=== PATIENT | male | born 1955 | race Caucasian/White ===

== ENCOUNTER 2020-11-21 09:57 | Outpatient (REF) | payer SELFPAY ==
[2020-11-24 00:07] LABS: TS Negative Control Passed; TS Panel A 0; TS Panel B 1; TS Positive Control Passed; TSpotTB Negative (SeeBelow)
== END 2020-11-21 09:58 | disposition home or self-care (01) ==
LOC: HO.HMGCLDS 09:57
PROVIDERS: Visit Provider Hospitalist
DX: Z11.1 Encounter for screening for respiratory tuberculosis (principal)
CPT/HCPCS: 36415; 86481

== ENCOUNTER 2025-06-04 08:03 | Day surgery (SDC) | payer OTHER, SELFPAY ==
--- OUTSIDE RECORDS SUMMARY | 2025-04-08 16:15 | XMS_ITS | Patient Health Record ---
Author Organization [facility] Address [address] [place] [address] Care Team Providers Care Doughnut Glazier Name Role Phone Bk Rivers MD Primary Care Provider Unavailab Herberth Aguila Unavailable [phone] Allergies No Known Allergies Reason For Referral Referring Provider First Name Bk Referring Provider Last Name Silvestre Referring Provider Speciality Internal M edicine Referred Organization [facility] Referred Provider Herberth Mcknight Referred Address [address],[place], [place],[address], Referred Provider Specialty Gastroentero logy Referral Priority Routine Medications Medication SIG (Take, Route, Frequency, Duration) Notes Start Date End Date Status Lisinopril 40 MG 1 tablet Orally Once a day Active Dulcolax (colon prep) 5 MG take 2 at 3:0 0 p.m and 7:00p.m. the day before the colonoscopy Orally two tablets twice a day for one day for 1 days 03/04/2025 Active MiraLax (colon prep) 17 GM/SCOOP 1 238 Gm bottle mixed with Gatorade or Crystal Light the day before the colonoscopy orally begin at 5:00 p.m. the day before the procedure for 1 days 03/04/2025 Active Ibuprofen 600 MG 1 tablet with food o r milk as needed Orally Three times a day PRN Active Pravastatin Sodium 40 MG 1 tablet Orally Once a day Active amLODIPine Besylate 2.5 MG 1 tablet Orally Once a day Active metFORMIN HCl ER 500 MG 1 tablet with ev ening meal Orally Once a day Active Immunizations Vaccine Route Administration Date Status Comme nts Influenza Unknown 04/05/2019 Administered Influenza Unknown 04/22/2024 Administered Social History Tobacco Use: Social History Observation Description Date Details (start date - stop date) Current Smoker NA - NA Tobacco Use/Smoking Question Answer Notes Patient is a current smoker How often do you smoke cigarettes? every day How many cigarettes a day do you smoke? - Alcohol Screen Question Answer Notes Did you have a drink containing alcohol in the p ast year? No Points 0 Interpretation Negative Section Notes: Smokes 1 ppd; no sig alcohol Smokes 1 ppd; no sig alcohol Problems Problem Type SNOMED Code ICD Code Onset Dates Problem Status W/U Status Risk Notes Problem Colon cancer screening (019480368) Colon cancer screening (Z12.11) Active confirmed Problem 936767645 Encounter for screening for malignant neoplasm of colon (Z12.11) Active confirmed Problem [id number] Preprocedural examination (Z01.818) Active confirmed Problem 92211681069637 History of hepatitis C (Z86.19) Active confirmed Problem [id number] Hepatitis C virus infection without hepatic coma, unspecified chronicity (B19.20) Active confirmed Problem History of adenomatous polyp of colon (216412481) History of adenomatous polyp of colon (Z86.0101) Active confirmed Vital Signs Temperature 97.1 degrees Fahrenheit 02/23/2025 Blood pressure diastolic 01 mm Hg 02/23/2025 Height 69 in 02/23/2025 Blood pressure systolic 001 mm Hg 02/23/2025 Weight 187.6 lbs 02/23/2025 BMI 27.7 kg/m2 02/23/2025 Procedures Procedure Date Ordered Date Performed Result Body Sit e COLONOSCOPY 02/23/2025 N/A Encounters Encounter Location Date Provider Diagnosis [facility] [address] [place] [id number] 02/23/2025 Herberth Mcknight Colon cancer screeni ng Z12.11 ; Preprocedural examination Z01.818 ; History of adenomatous polyp of colon Z86.0101 and History of hepatitis C Z86.19 [facility] [address] [place] [phone] 02/23/2025 Herberth Mcknight Assessments Encounter Date Diagnosis (ICD Code) Assessment Notes Treatment Notes Treatment Clinical Notes Section Notes 02/23/2025 Colon cancer screening (ICD-10 - Z12.11) Overall, Mony appears well and is not having any new or worrisome GI complaints. I did recommend a follow-up colonoscopy for further screening given his history of polyps removed just about 5 years ago, including that of adenomatous and serrated polyp. We did review the rationale for this in regard to colon cancer prevention. Full consent has been obtained for this, including risks of bleeding and perforation. The procedure will be done with monitored anesthesia care. He was given the below instructions regarding adjustment of his medication for the procedure. I did advise him to be sure to continue to have yearly ultrasounds and laboratories, including an alpha-fetoprote in level, through your office at the [place]. Mony was comfortable with this plan. Thank you again for allowing me to precipitate in Mony's care. I shall continue to keep you advised of his progress. 02/23/2025 Preprocedural examination (ICD-10 - Z01.818) Overall, Mony appears well and is not having any new or worrisome GI complaints. I did recommend a follow-up colonoscopy for further screening given his history of polyps removed just about 5 years ago, including that of adenomatous and serrated polyp. We did review the rationale for this in regard to colon cancer prevention. Full consent has been obtained for this, including risks of bleeding and perforation. The procedure will be done with monitored anesthesia care. He was given the below instructions regarding adjustment of his medication for the procedure. I did advise him to be sure to continue to have yearly ultrasounds and laboratories, including an alpha-fetoprote in level, through your office at the [place]. Mony was comfortable with this plan. Thank you again for allowing me to precipitate in Mony's care. I shall continue to keep you advised of his progress. 02/23/2025 History of adenomatous polyp of colon (ICD-10 - Z86.0101) Overall, Mony appears well and is not having any new or worrisome GI complaints. I did recommend a follow-up colonoscopy for further screening given his history of polyps removed just about 5 years ago, including that of adenomatous and serrated polyp. We did review the rationale for this in regard to colon cancer prevention. Full consent has been obtained for this, including risks of bleeding and perforation. The procedure will be done with monitored anesthesia care. He was given the below instructions regarding adjustment of his medication for the procedure. I did advise him to be sure to continue to have yearly ultrasounds and laboratories, including an alpha-fetoprote in level, through your office at the [place]. Mony was comfortable with this plan. Thank you again for allowing me to precipitate in Mony's care. I shall continue to keep you advised of his progress. 02/23/2025 History of hepatitis C (ICD-10 - Z86.19) Continue the yearly ultrasounds and lab work for your liver and previous history of Hepatitis C Overall, Mony appears well and is not having any new or worrisome GI complaints. I did recommend a follow-up colonoscopy for further screening given his history of polyps removed just about 5 years ago, including that of adenomatous and serrated polyp. We did review the rationale for this in regard to colon cancer prevention. Full consent has been obtained for this, including risks of bleeding and perforation. The procedure will be done with monitored anesthesia care. He was given the below instructions regarding adjustment of his medication for the procedure. I did advise him to be sure to continue to have yearly ultrasounds and laboratories, including an alpha-fetoprote in level, through your office at the [place]. Mony was comfortable with this plan. Thank you again for allowing me to precipitate in Mony's care. I shall continue to keep you advised of his progress. Plan Of Treatment Pending Test Test Name Order Date COLONOSCOPY 02/23/2025 Future Test Test Name Order Date COLONOSCOPY 01/14/2020 Next Appt Details Provider Name:Herberth Mcknight , 06/04/2025 09:20:00 AM, [address] [place] [address] , [place], [place], [phone], Insurance Providers Payer Name Payer Address Payer Phone Subscriber Number Group Number Insured Name Patient Relationship to Insured Coverage Start Date Coverage End Date [facility] [employer] [address] [place] [phone] [id number] REJILOUISJULIANNEMONY MONTANEZ Self - patient is the insured Medical (General) History Medical History History ICD Code Hypertension Denies MD,CVA,Lung disease,renal disease Hep C treated with Interfero n and Ribavirin in approx 2009- he reports that a liver biopsy was OK . He reports that he gets periodic liver U/S's and labs at the [place]. He reports that the hepatitis C has been cured . Neg. screening colonoscopy a nd upper endoscopy in February of [address] Edwige TORO Screening colonoscopy in Mar with removal of an adenomatous and serrated polyp. Surgical History Surgery Date(Month/Year) Appendectomy Back surgery 30 yrs ago
[2025-06-02 15:08] VITALS: BMI 27.7
--- NOTE | 2025-06-03 08:29 | HO.ANESPROP2 ---
Documented by User: Jacquie Orellana NP 06/03/25 08:29 HPI - Anesthesia Eval Consult details Narrative: 69yo M for Colonoscopy [facility] Active Problems Active Problems: All Active Problems Screening-pulmonary TB (Acute) Past Medical History Medical History Smoker Diabetes HTN (hypertension) Hepatitis Surgical History Surgical History Hx of tonsillectomy Hx of appendectomy History of back surgery History of esophagogastroduodenoscopy (EGD) H/O colonoscopy Social History Social History Alcohol intake: never Patient Tobacco Use Status: Current everyday Tobacco user Tobacco use type: Cigarette Cigarettes Per Day: 15 Use of substances other than those prescribed or required for medical reasons: No Are you DNR?: No Advance Directives: No Advance Directives Information Provided: Yes Meds Allergies Allergy/AdvReac Type Severity Reaction Status Date / Time No Known Allergies Allergy Unverified 11/21/20 09:40 Home Medications ?Medication ?Instructions ?Recorded ?Confirmed ?Last Taken ?Type lisinopril 40 mg tablet 40 mg PO DAILY 11/21/20 06/02/25 06/04/25 History amlodipine 2.5 mg tablet 2.5 mg PO DAILY 06/02/25 06/02/25 06/04/25 History ibuprofen 600 mg tablet 600 mg PO TID PRN Pain 06/02/25 06/02/25 Unknown History metformin 500 mg tablet 500 mg PO DAILY 06/02/25 06/02/25 Unknown History pravastatin 40 mg tablet 40 mg PO DAILY 06/02/25 06/02/25 Unknown History Exam Height,Weight and Vital Signs: Height 5 ft 9 in Weight 85.094 kg Assessment and Plan Assessment Anesthesia Assessment: Chart Reviewed Documented by User: Elsy Chery MD 06/04/25 09:03 [facility] Past Medical History Medical History Smoker Diabetes HTN (hypertension) Hepatitis Surgical History Surgical History Hx of tonsillectomy Hx of appendectomy History of back surgery History of esophagogastroduodenoscopy (EGD) H/O colonoscopy History of Problems with Anesthesia: No Social History Social History Alcohol intake: never Patient Tobacco Use Status: Current everyday Tobacco user Tobacco use type: Cigarette Cigarettes Per Day: 15 Use of substances other than those prescribed or required for medical reasons: No Are you DNR?: No Advance Directives: No Advance Directives Information Provided: Yes Meds Allergies Allergy/AdvReac Type Severity Reaction Status Date / Time No Known Allergies Allergy Unverified 11/21/20 09:40 Home Medications ?Medication ?Instructions ?Recorded ?Confirmed ?Last Taken ?Type lisinopril 40 mg tablet 40 mg PO DAILY 11/21/20 06/02/25 06/04/25 History amlodipine 2.5 mg tablet 2.5 mg PO DAILY 06/02/25 06/02/25 06/04/25 History ibuprofen 600 mg tablet 600 mg PO TID PRN Pain 06/02/25 06/02/25 Unknown History metformin 500 mg tablet 500 mg PO DAILY 06/02/25 06/02/25 Unknown History pravastatin 40 mg tablet 40 mg PO DAILY 06/02/25 06/02/25 Unknown History Exam Airway Mallampati Class: III (globally poor dentition) TM Dist: >3cm Neck ROM: Full Partial: Upper and Lower Loose/Missing/Broken Teeth: Yes, Upper and Lower Heart: RRR Lungs: CTA Assessment and Plan Assessment Anesthesia Assessment: Anesthesia Plan Discussed Final Anesthetic Review History of Problems with Anesthesia: No NPO: Yes ASA Class: III Final Preanesthetic Review: Meds/Allgs Chart Reviewed, Consent Obtained/Reviewed and Anes Risks/Benef Reviewed Patient Risk: Intermediate Procedure Risk: Low Anesthetic Plan Anesthetic Plan: MAC: Disposition: Standard PACU
[2025-06-04 08:45] VITALS: BMI 26.3
[2025-06-04 08:47] VITALS: BP 126/87; PULSE 87; RESP 16; TEMP 36.2; O2SAT 95
[2025-06-04 09:00] LABS: Glucose, Whole Blood 159 mg/dL (60-115)
[2025-06-04] MEDS: Lactated Ringers 1,000 ML 100 ML IVCONT (09:05)
[2025-06-04 10:23] VITALS: BP 106/66; PULSE 77; RESP 15; TEMP 36.6; O2SAT 99
--- NOTE | 2025-06-04 10:25 | P.BOP_ITS ---
Brief Operative Note Date of Service: 06/04/25 Pre-op diagnosis: Screening Post-op diagnosis: other (Polyps) Procedure: Colonoscopy to the cecum with hot snare polypectomy x 2. and bx/removal of polyp Surgeon: Herberth Mcknight MD Anesthesia: MAC Was an [employer] Engine Opt[employer] Strategist used for this Procedure?: No Estimated blood loss (mL): 2.0 Pathology: other (A. Ascending colon polyp B. Rectal polyps) Condition: stable Disposition: PACU
[2025-06-04 10:38] VITALS: BP 114/76; PULSE 83; RESP 17; TEMP 36.4; O2SAT 99
--- NOTE | 2025-06-04 10:57 | OP_ITS ---
DATE OF SERVICE: 06/04/2025 SURGEON: Herberth Mcknight MD INDICATIONS: The patient presents for evaluation of colorectal cancer screening and personal history of tubular adenoma of the colon. Full consent has been obtained from him for this, including risks of bleeding and perforation. PREOPERATIVE DIAGNOSIS: POSTOPERATIVE DIAGNOSIS: PROCEDURE PERFORMED: ESTIMATED BLOOD LOSS: COMPLICATIONS: ANESTHESIA: Medication used, monitored anesthesia care. ASSISTANTS: SPECIMENS: PREOPERATIVE DIAGNOSES: Colorectal cancer screening and personal history of tubular adenoma of the colon. POSTOPERATIVE DIAGNOSES: Colorectal cancer screening and personal history of tubular adenoma of the colon, colon polyps, diverticulosis, and internal hemorrhoids. PROCEDURES PERFORMED: Colonoscopy to the cecum with hot snare polypectomy x 2, and biopsy and removal of polyp. DESCRIPTION OF PROCEDURE: The patient was placed in the left lateral decubitus position. The digital rectal exam revealed no abnormalities. The [employer] video pediatric colonoscope was entered into the rectum and advanced easily to the cecum. Once in the cecum, I did identify normal-appearing cecal pouch with appendiceal orifice and a normal-appearing ileocecal valve. The entire cecum and ileocecal valve appeared normal. The appendiceal orifice appeared normal. There was transillumination of light deep in the right lower quadrant. The scope was slowly withdrawn assessing all mucosal surfaces carefully. Preparation was excellent. In the proximal ascending colon was an approximately 10 mm flat but raised probable serrated polyp, which was removed by hot snare polypectomy and recovered by suction. The polypectomy site appeared clean, without any sign of residual polyp nor bleeding. There was a mild amount of sigmoid diverticulosis. I did not visualize any sign of colitis nor angiodysplasia. In the proximal rectum was a 3 or 4 mm polyp that was biopsied and completely removed with a cold biopsy forceps. The scope was retroflexed visualizing internal hemorrhoids. The rectal mucosa appeared normal. In the very distal rectum, seen best in the forward viewing position, was an approximately 8 mm polyp, which was removed by hot snare polypectomy and recovered by suction. The polypectomy site appeared clean, without any sign of residual polyp nor bleeding. The scope was withdrawn from the patient. He tolerated the procedure well and was returned to the recovery area in stable condition. IMPRESSION: 1. Colon and rectal polyps. 2. Diverticulosis. 3. Internal hemorrhoids. PLAN: The results of the pathology will be checked. I would recommend a repeat colonoscopy in 5 years. He was advised not to use any aspirin nor NSAIDs for 1 week. MD DEMETRIUS Nevarez/RAPHAEL / [id number] MTDD
== END 2025-06-04 11:48 | disposition home or self-care (01) ==
PROVIDERS: Visit Provider Internal Medicine
PROC: 0DJD8ZZ Inspection of Lower Intestinal Tract, Via Natural or Artificial Opening Endoscopic (ICD-10-PCS; CPT 45378; principal; 2025-06-04 09:20)
DX: Z12.11 Encounter for screening for malignant neoplasm of colon (principal); Z86.0101 Personal history of adenomatous and serrated colon polyps; D12.2 Benign neoplasm of ascending colon; K62.1 Rectal polyp; K57.30 Diverticulosis of large intestine without perforation or abscess without bleeding; K64.8 Other hemorrhoids; I10 Essential (primary) hypertension; E11.9 Type 2 diabetes mellitus without complications; Z86.19 Personal history of other infectious and parasitic diseases; Z79.1 Long term (current) use of non-steroidal anti-inflammatories (NSAID); Z79.84 Long term (current) use of oral hypoglycemic drugs; Z79.899 Other long term (current) drug therapy; Z98.890 Other specified postprocedural states; F17.210 Nicotine dependence, cigarettes, uncomplicated
CPT/HCPCS: 45385; 45380; 82947; 88305; J2371; J2704